=== PATIENT | female | born 1950 | race Asian ===

== ENCOUNTER 2017-03-10 16:18 | Emergency (ER) | payer MEDICARE, MEDICAID ==
--- NOTE | 2017-03-10 16:54 | ED Physician Chart ---
Chief Complaint/HPI - Patient Information Date Seen:: 03/10/17 Time Seen:: 16:35 Chief Complaint:: right-sided chest pain History of Present Illness:: Patient stated she fell 11 days ago injuring the right side of her chest. She states that she fell because of osteoporosis and gives no other explanation. Vitals:: Vital Signs - 8 hr 03/10/17 16:40 HR 96 RR 16 BP 183/96 O2 Sat % 97 Historian:: Patient Review:: Nurse's Note Reviewed Review of Systems - Review of Systems General/Constitutional: No fever, No chills Skin: No skin lesions Head: No headache Eyes: No loss of vision ENT: No earache Neck: No neck pain, No thyromegaly Cardio Vascular: Chest pain Pulmonary: No SOB GI: No nausea, No vomiting G/U: No dysuria Musculoskeletal: Bone or joint pain Endocrine: No polyuria, No polydipsia Psychiatric: No prior psych history, No depression, No anxiety Hematopoietic: Bruising Allergic/Immuno: No urticaria Neurological: No syncope Past Medical History - Past Medical History Past Medical History: Asthma/COPD, Seizures, Other (status post deep vein thrombosis left knee) Family History: Cancer Social History: Non Smoker, No Alcohol Surgical History: Hysterectomy Psychiatricy History: None Medication: Reviewed Family Medical History - Family Member Mother History Unknown: Yes Physical Exam - Physical Examination General/Constitutional: Well-developed, well-nourished, Alert, No distress Head: Atraumatic Eyes: Lids, conjuctiva normal, PERRL Skin: Nl inspection, No rash, No skin lesions, No ecchymosis ENMT: External ears, nose nl, TM canals nl, Nasal exam nl, Lips, teeth, gums nl , Oropharynx nl, Tonsils nl Neck: No nuchal rigidity Respiratory: Nl effort/Exclusion, Clear to Auscultation, No Wheeze/Rhonchi/Rales Other Respiratory comments:: Mild right inferior chest wall tenderness Cardio Vascular: RRR, No murmur, gallop, rubs GI: No organomegaly, No hernia, Normal BS's, Nondistended, No mass/bruits, No McBurney tenderness Other GI comments:: Mild right upper quadrant tenderness : No CVA tenderness Other Extremities comments:: 3 out of 4 pretibial pitting edema Neuro/Psych: Alert/oriented, No focal deficits Misc: Normal back, No paraspinal tenderness Labs/Radiology/EKG Results - Lab Results Comments:: Laboratory Results - last 24 hr 03/10/17 03/10/17 03/10/17 17:07 17:07 17:07 WBC 7.5 RBC 3.97 Hgb 10.5 L Hct 33.0 L MCV 83.1 MCH 26.5 L MCHC Differential 31.9 RDW 14.1 Plt Count 341 MPV 7.7 Neutrophils % 69.9 Lymphocytes % 20.5 Monocytes % 9.3 Eosinophils % 0.3 Basophils % 0.0 Sodium 138 Potassium 3.9 Chloride 107 Carbon Dioxide 22.8 Anion Gap 12.1 BUN 16 Creatinine 0.7 Est GFR ( Amer) > 60.0 Est GFR (Non-Af Amer) > 60.0 BUN/Creatinine Ratio 22.9 Glucose 97 Calcium 9.4 Phenytoin 15.0 Phenobarbital 8.7 L - Radiology Results Results: Right rib series showed fracture of the right eighth rib and cardiomegaly. - EKG Interpretations Rate & Rhythm: normal sinus rhythm with a rate of 93 [place]: normal Comments:: No ST or T changes Assessment - Assessment General Assessment: Patient asked for pain medicine. She was given [place] 10/325 mg but she then eloped from the emergency department. ED Septic Shock - . Is Septic Shock (SBP<90, OR Lactate>4 mmol\L) present?: No - <6hrs of presentation: Vital Signs: Vital Signs - 8 hr 03/10/17 16:40 HR 96 RR 16 BP 183/96 O2 Sat % 97 Reassessment (Disposition) - Reassessment Reassessment Condition:: Unchanged - Diagnosis Diagnosis:: Right eighth rib fracture; cardiomegaly; anemia - Patient Disposition Discharge/Transfer:: [place]/AWOL Condition at Disposition:: Stable, Unchanged
[2017-03-10 17:18] LABS: % EOSINOPHILS 0.3 % (0.0-5.0); % LYMPHOCYTES 20.5 % (20.0-50.0); % MONOCYTES 9.3 % (2.0-10.0); % NEUTROPHILS 69.9 % (40.0-80.0); HEMOGLOBIN 10.5 gm/dL (11.7-16.1); MEAN CELL VOLUME 83.1 fl (81-100); MEAN CORPUSCULAR HEMOGLOBIN 26.5 pg (27.0-31.0); MEAN CORPUSCULAR HGB CONC 31.9 pg (28.0-36.0); MEAN PLATELET VOLUME 7.7 fl; NEUTROPHILE ABSOLUTE 5.3 Th/cmm (1.8-8.0); PLATELET COUNT 341 Th/cmm (150-400); RED BLOOD COUNT 3.97 Mil/cmm (3.80-5.20); RED CELL DISTRIBUTION WIDTH 14.1 % (11.5-20.0); WHITE BLOOD COUNT 7.5 Th/cmm (4.8-10.8)
[2017-03-10 17:29] LABS: ANION GAP 12.1 (7.0-16.0); BUN - UREA NITROGEN 16 mg/dL (7-25); BUN/CREATININE RATIO 22.9; CALCIUM SERUM 9.4 mg/dL (8.6-10.3); CARBON DIOXIDE 22.8 mEq/L (21.0-31.0); CHLORIDE 107 mEq/L (98-107); CREATININE - SERUM 0.7 mg/dL (0.6-1.2); GLUCOSE 97 mg/dL (70-105); POTASSIUM SERUM 3.9 mEq/L (3.5-5.1); SODIUM SERUM 138 mEq/L (136-145)
[2017-03-10] MEDS ORDERED: Hydrocodone/APAP 10 mg/325 mg Tab ONE (18:24)
[2017-03-10] MEDS: Hydrocodone/APAP 10 mg/325 mg Tab PO STA (18:26)
--- NOTE | 2017-03-11 10:07 | Diagnostic Imaging Report ---
Right rib series 3 views Indication: Trauma Comparison: none Findings: No focal consolidation pleural effusions or evidence of a pneumothorax. Mildly displaced right eighth rib fracture are noted. Nondisplaced 10th right rib fracture is noted. There may be a nondisplaced ninth right rib fracture. Postsurgical changes of the upper abdomen are noted. Mild cardiomegaly is noted. IMPRESSION: Mildly displaced right 8th rib fracture. Additional nondisplaced right 10th rib fracture is also noted. There may be an additional nondisplaced 9th right rib fracture. No evidence of pneumothorax Mild cardiomegaly.
== END 2017-03-10 18:45 | disposition left against medical advice (07) ==
LOC: ER 16:18
DX: S22.31XA Fracture of one rib, right side, initial encounter for closed fracture (principal); I51.7 Cardiomegaly; D64.9 Anemia, unspecified; J45.909 Unspecified asthma, uncomplicated; J44.9 Chronic obstructive pulmonary disease, unspecified; Z90.710 Acquired absence of both cervix and uterus; W19.XXXA Unspecified fall, initial encounter; Y93.89 Activity, other specified; Y92.89 Other specified places as the place of occurrence of the external cause; Y99.8 Other external cause status
CPT/HCPCS: 36415-UA; 71101-TC-RT; 80048-TC; 80184-TC; 80185-TC; 85025-TC; 93005